=== PATIENT | female | born 1985 | race Two or more races ===

== ENCOUNTER 2020-02-21 01:39 | Inpatient (IN) | payer OTHER ==
[2020-02-21] MEDS ORDERED: AMPICILLIN - 2 GM in SODIUM CHLORIDE 100 ML IVPB ONE (02:05)
[2020-02-21] MEDS ORDERED: OXYTOCIN 20 UNITS in 0.9% NS 20 UNIT/1,000 ML INFUS.BAG IV ONE ×3 (02:58→07:57)
[2020-02-21] MEDS ORDERED: LIDOCAINE HCL 1% PRESERVATIVE FREE - 30ML VIAL ONE ×2 (02:58→04:31)
[2020-02-21 03:00] LABS: BASO % 0.2 % (0-2.0); EOS % 0.6 % (0-4.5); HEMATOCRIT 36.8 % (32.4-45.2); HEMOGLOBIN 12.1 GM/dL (10.7-15.3); LYMPH % 19.6 % (8-40); MCH 27.1 pg (25.7-33.7); MEAN CELL VOLUME 82.2 fl (80-96); MONO % 8.5 % (3.8-10.2); NEUT % 71.1 % (42.8-82.8); PLATELET COUNT 216 K/MM3 (134-434); RBC 4.47 M/mm3 (3.60-5.2); RDW 15.1 % (11.6-15.6)
[2020-02-21] MEDS ORDERED: DEXTROSE 5%-LACTATED RINGERS 1,000 ML IV SCH (03:00)
[2020-02-21 03:09] LABS: INR 0.9 (0.83-1.09); PROTHROMBIN TIME (PATIENT) 11.1 SEC (9.7-13.0)
[2020-02-21] MEDS: OXYTOCIN 20 UNITS in 0.9% NS 20 UNIT/1,000 ML INFUS.BAG IV SCH ×3 (03:10→16:55)
[2020-02-21 03:12] LABS: ACTIVATED PTT 25.5 SECONDS (25.2-36.5)
[2020-02-21 03:19] LABS: POTASSIUM 4.1 mmol/L (3.5-5.1)
[2020-02-21 03:21] LABS: ALBUMIN 2.8 g/dl (3.4-5.0); CALCIUM 9.8 mg/dL (8.5-10.1)
[2020-02-21 03:22] LABS: BLOOD UREA NITROGEN 8.4 mg/dL (7-18)
[2020-02-21 03:25] LABS: CREATININE 0.6 mg/dL (0.55-1.3)
[2020-02-21] MEDS ORDERED: METHYLERGONOVINE MALEATE 0.2 MG/1 ML AMP IM ONE ×2 (03:25→04:40)
[2020-02-21 03:26] LABS: BILIRUBIN,TOTAL 0.3 mg/dL (0.2-1)
[2020-02-21 03:46] LABS: SYPHILIS W/ RPR CONF NON-REACTIVE (NONREACTIVE)
[2020-02-21 03:51] LABS: CORD BASE EXCESS -6.1 mmol/L (0-2); CORD HCO3 22.3 mmHg (20-29); CORD PCO2 56.5 mmHg (30-78); CORD pH 7.214 (7.14-7.44)
[2020-02-21 03:57] LABS: CORD BASE EXCESS -5.2 mmol/L (0-2); CORD HCO3 24.2 mmHg (20-29); CORD PCO2 65.6 mmHg (30-78); CORD pH 7.184 (7.14-7.44)
[2020-02-21 04:07] VITALS: BMI 29.2
[2020-02-21 04:14] LABS: HIV INTERPRETATION NEGATIVE (NEGATIVE)
[2020-02-21] MEDS ORDERED: WITCH HAZEL 50% (TUCKS) 40 PAD/JAR PAD TP PRN (04:15)
[2020-02-21] MEDS ORDERED: BENZOCAINE 20% 57 GM BOTTLE TP PRN (04:15)
[2020-02-21] MEDS ORDERED: BENZOCAINE 28 GM HEMORRHOIDAL OINTMENT TP PRN (04:15)
[2020-02-21] MEDS ORDERED: BISACODYL 10 MG SUPP.RECT RC PRN (04:15)
[2020-02-21] MEDS ORDERED: METHYLERGONOVINE MALEATE 0.2 MG/1 ML AMP IM PRN (04:15)
[2020-02-21] MEDS ORDERED: BUTORPHANOL TARTRATE 2 MG/ML VIAL ONE (04:22)
[2020-02-21] MEDS ORDERED: PROMETHAZINE HCL 25 MG/1 ML VIAL ONE (04:23)
[2020-02-21] MEDS ORDERED: BUTORPHANOL TARTRATE 1 MG/ML VIAL IVPB ONE (04:25)
[2020-02-21] MEDS ORDERED: PROMETHAZINE HCL 25 MG/1 ML VIAL IVPB ONE (04:25)
[2020-02-21 04:30] LABS: EPI CELLS 8 /uL (0-25.1); HYALINE CASTS 1 /uL (0-3.1); URINE APPEARANCE CLEAR; URINE BACTERIA 12 /uL (0-1359); URINE BILIRUBIN NEGATIVE (NEGATIVE); URINE COLOR YELLOW; URINE GLUCOSE (UA) NEGATIVE (NEGATIVE); URINE KETONE NEGATIVE (NEGATIVE); URINE LEUK ESTERASE NEGATIVE (NEGATIVE); URINE NITRITE NEGATIVE (NEGATIVE); URINE PROTEIN 2+ (NEGATIVE); URINE RBC 44 /uL (0-23.9); URINE UROBILINOGEN 0.2 mg/dL (0.2-1.0); URINE WBC 5 /uL (0-25.8)
[2020-02-21 04:32] LABS: URINE AMPHETAMINES NEGATIVE ng/ml (CUTOFF=500)
[2020-02-21 04:33] LABS: COCAINE, UR NEGATIVE ng/ml (CUTOFF=300); METHADONE, UR NEGATIVE ng/ml (CUTOFF=300); OPIATES, URI NEGATIVE ng/ml (CUTOFF=300); PHENCYCLIDINE,URINE NEGATIVE ng/ml (CUTOFF=25); URINE BARBITURATES NEGATIVE ng/ml (CUTOFF=200); URINE BENZODIAZEPINES NEGATIVE ng/ml (CUTOFF=200)
[2020-02-21] MEDS: ACETAMINOPHEN 325 MG TABLET (FP) PO PRN ×2 (10:45→16:54)
[2020-02-21] MEDS: FERROUS SO4 325 MG TABLET (FP) PO SCH ×2 (10:46→21:00)
[2020-02-21] MEDS: PRENATAL VITAMINS W/ FOLIC ACID TABLET (FP) PO SCH (10:46)
[2020-02-22 06:15] LABS: BASO % 0.4 % (0-2.0); EOS % 0.5 % (0-4.5); HEMATOCRIT 24.6 % (32.4-45.2); HEMOGLOBIN 8.1 GM/dL (10.7-15.3); LYMPH % 14.8 % (8-40); MEAN CELL VOLUME 81.6 fl (80-96); MEAN PLT VOLUME 9.4 fl (7.5-11.1); MONO % 5.2 % (3.8-10.2); NEUT % 79.1 % (42.8-82.8); PLATELET COUNT 193 K/MM3 (134-434); RBC 3.01 M/mm3 (3.60-5.2); RDW 15.2 % (11.6-15.6); WHITE BLOOD COUNT 16.1 K/mm3 (4.0-10.0)
[2020-02-22] MEDS: ACETAMINOPHEN 325 MG TABLET (FP) PO PRN (09:43)
[2020-02-22] MEDS: FERROUS SO4 325 MG TABLET (FP) PO SCH ×2 (09:43→21:10)
[2020-02-22] MEDS: PRENATAL VITAMINS W/ FOLIC ACID TABLET (FP) PO SCH (09:43)
[2020-02-22] MEDS: IBUPROFEN 600 MG TABLET (FP) PO PRN ×2 (09:44→20:06)
[2020-02-22 11:05] VITALS: TEMP 98.3
[2020-02-22] MEDS: OXYTOCIN 20 UNITS in 0.9% NS 20 UNIT/1,000 ML INFUS.BAG IV SCH (12:05)
[2020-02-22 20:42] VITALS: PULSE 99
[2020-02-22] MEDS ORDERED: SENNOSIDES/DOCUSATE COMBO (SENNA PLUS) TABLET (UD) PO PRN (22:00)
[2020-02-23 10:55] VITALS: BP 110/72
== END 2020-02-23 09:35 | disposition home or self-care (01) | DRG 560 ==
LOC: JLDR 01:39 → J3W 09:00
PROVIDERS: ADMIT Obstetrics & Gynecology; ATTEND Obstetrics & Gynecology
PROC: 10E0XZZ Delivery of Products of Conception, External Approach (ICD-10-PCS; principal; 2020-02-21)
PROC: 0W8NXZZ Division of Female Perineum, External Approach (ICD-10-PCS; 2020-02-21)
DX: O80 Encounter for full-term uncomplicated delivery (principal); Z3A.39 39 weeks gestation of pregnancy; Z37.0 Single live birth
CPT/HCPCS: 36415; 36600; 59409; 80053; 80307; 81003; 82803; 85025; 85610; 85730; 86762; 86780; 86850; 86900; 86901; 87340; 87389; 88307-TC; C9803; U0003